=== PATIENT | male | born 1980 | race Two or more races ===

== ENCOUNTER 2019-03-10 16:49 | Observation (INO) | payer SELFPAY ==
--- NOTE | 2019-03-10 17:14 | ER Document Report ---
ED Medical Screen (RME) - General Chief Complaint: Chest Pain Stated Complaint: CHEST PAIN Time Seen by Provider: 03/10/19 17:12 TRAVEL OUTSIDE OF THE [place] IN LAST 30 DAYS: No - HPI Notes: 03/10/19 17:13 Patient is a 38-year-old male with no significant past medical history who presents complaining of intermittent chest pain for the past week and a half. Patient states that the pain is in his substernal area and is described as a sharp pain. The pain does not radiate. 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 Patient states that when the son came out today he started feeling dehydrated with muscle cramping and body aching. He did have one episode of vomiting. He is still urinating. Denies drug allergies. No recent illness. No history of DVT/PE. He had 1 beer today. Denies MAYO, fever, neck pain, URI, SOB, dysuria, or rash. I have treated and performed a rapid initial assessment of this patient. A comprehensive ED assessment and evaluation of the patient, analysis of test results and completion of medical decision making process will be conducted by additional ED providers. PHYSICAL EXAMINATION: GENERAL: Well-appearing, well-nourished and in no acute distress. A&Ox4. Answers questions appropriately. LUNGS: Breath sounds clear to auscultation bilaterally and equal. No wheezes rales or rhonchi. HEART: Regular rate and rhythm without murmurs, rubs, gallops. Extremities: No cyanosis, clubbing, or edema b/l. Danica negative bilaterally. No lower extremity asymmetry. NEUROLOGICAL: Normal speech, normal gait. PSYCH: Normal mood, normal affect. - Related Data Allergies/Adverse Reactions: No Known Allergies Allergy (Verified 03/10/19 16:56) Physical Exam - Vital signs Vitals: Temp Pulse Resp BP Pulse Ox 98.7 F 105 H 15 125/85 96 03/10/19 17:00 03/10/19 17:00 03/10/19 17:00 03/10/19 17:00 03/10/19 17:00 Course - Vital Signs Vital signs: Temp Pulse Resp BP Pulse Ox 98.7 F 105 H 15 125/85 96 03/10/19 17:00 03/10/19 17:00 03/10/19 17:00 03/10/19 17:00 03/10/19 17:00
[2019-03-10] MEDS ORDERED: METOCLOPRAMIDE HCL INJ/PF 10 MG/2 ML SDV IV ONE (17:15)
[2019-03-10] MEDS ORDERED: DIAZEPAM INJ 10 MG/2 ML DISP.SYRIN IV ONE (17:15)
[2019-03-10] MEDS: NORMAL SALINE 1000 ML 1,000 ML IV PRN ×2 (17:50→19:01)
[2019-03-10 17:52] LABS: ABSOLUTE BASOPHILS # (AUTO) 0.1 10^3/uL (0.0-0.2); ABSOLUTE LYMPHOCYTES (AUTO) 1.1 10^3/uL (0.5-4.7); ABSOLUTE MONOCYTES (AUTO) 0.8 10^3/uL (0.1-1.4); ABSOLUTE NEUT (AUTO) 8.3 10^3/uL (1.7-8.2); BASOPHILS % (AUTO) 0.5 % (0-2); HEMATOCRIT 45.4 % (37.9-51.0); HEMOGLOBIN 15.5 g/dL (13.5-17.0); LYMPHOCYTES % (AUTO) 10.9 % (13-45); MEAN CORPUSCULAR HEMOGLOBIN 32.1 pg (27.0-33.4); MEAN CORPUSCULAR HGB CONC 34.2 g/dL (32.0-36.0); MEAN CORPUSCULAR VOLUME 94 fl (80-97); MONOCYTES % (AUTO) 7.4 % (3-13); PLATELET COUNT 248 10^3/uL (150-450); RED BLOOD COUNT 4.84 10^6/uL (4.35-5.55); RED CELL DISTRIBUTION WIDTH 13.7 % (11.5-14.0); SEGMENTED NEUTROPHILS % (AUTO) 81.2 % (42-78); TOTAL CELLS COUNTED % (AUTO) 100 %; WHITE BLOOD COUNT 10.3 10^3/uL (4.0-10.5)
--- NOTE | 2019-03-10 18:09 | RADIOLOGY REPORT (SQ) ---
EXAM DESCRIPTION: CHEST 2 VIEWS COMPLETED DATE/TIME: 03/10/2019 6:01 pm REASON FOR STUDY: CP COMPARISON: None. EXAM PARAMETERS: NUMBER OF VIEWS: two views TECHNIQUE: Digital Frontal and Lateral radiographic views of the chest acquired. RADIATION DOSE: NA LIMITATIONS: none FINDINGS: LUNGS AND PLEURA: No opacities, masses or pneumothorax. No pleural effusion. MEDIASTINUM AND HILAR STRUCTURES: No masses or contour abnormalities. HEART AND VASCULAR STRUCTURES: Heart normal size. No evidence for failure. BONES: No acute findings. HARDWARE: None in the chest. OTHER: No other significant finding. IMPRESSION: NO ACUTE RADIOGRAPHIC FINDING IN THE CHEST. TECHNICAL DOCUMENTATION: JOB ID: [id number] [employer]- All Rights Reserved Reading location - IP/workstation name: [email or web address]
[2019-03-10 18:13] LABS: ALANINE AMINOTRANSFERASE 40 U/L (21-72); ALKALINE PHOSPHATASE 94 U/L (38-126); ASPARTATE AMINO TRANSFERASE 88 U/L (17-59); BILIRUBIN,DIRECT 0.5 mg/dL (0.0-0.4); BILIRUBIN,TOTAL 1.3 mg/dL (0.2-1.3); BLOOD UREA NITROGEN 23 mg/dL (7-20); CALCIUM 11.8 mg/dL (8.4-10.2); CREATINE KINASE 847 U/L (55-170); GLUCOSE 133 mg/dL (75-110); POTASSIUM 5.3 mmol/L (3.6-5.0)
--- NOTE | 2019-03-10 18:15 | EKG REPORT ---
SEVERITY:- NORMAL ECG - SINUS RHYTHM ST ELEV, PROBABLE NORMAL EARLY REPOL PATTERN : Confirmed by: Selma Piña MD 10-Mar-2019 18:14:28
[2019-03-10 18:19] LABS: ANION GAP 19 (5-19); CARBON DIOXIDE 29 mmol/L (22-30); CHLORIDE 91 mmol/L (98-107)
[2019-03-10 18:20] LABS: APPEARANCE,URINE TURBID; BILIRUBIN,URINE MODERATE (NEGATIVE); GLUCOSE, URINE NEGATIVE (NEGATIVE); KETONES,URINE TRACE mg/dL (NEGATIVE); LEUKOCYTE ESTERASE,URINE TRACE (NEGATIVE); NITRITE,URINE NEGATIVE (NEGATIVE); PROTEIN,URINE >=500 mg/dL (NEGATIVE); URINE SPECIFIC GRAVITY 1.027
[2019-03-10 18:21] LABS: ALBUMIN > 6.0 g/dL (3.5-5.0)
[2019-03-10 18:26] LABS: COLOR,URINE YELLOW
[2019-03-10] MEDS ORDERED: NORMAL SALINE 1000 ML 1,000 ML IV ONE (20:56)
--- NOTE | 2019-03-10 21:00 | ER Document Report ---
ED Cardiac - General Chief Complaint: Chest Pain Stated Complaint: CHEST PAIN Time Seen by Provider: 03/10/19 17:12 Notes: Patient is a 38-year-old male who presents emergency department with a chief complaint of chest pain and body cramping. She is primarily German-speaking and [employer] translation system was used with Krystal, aviation program manager #[id number]. 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 He states that he sometimes gets his chest pain and body cramping and has had it for a little while. He states that this time his cramping seemed more intense and that is why he came to the emergency department. He states that his chest pain has gone away. He admits to drinking 3-5 beers a day. He does not smoke. Patient states that he does drink some water, but not as much as he should. He received a liter of fluids and Valium in triage and states that he does feel better and the cramping has gone away. He denies any abdominal pain. TRAVEL OUTSIDE OF THE [place] IN LAST 30 DAYS: No - Related Data Allergies/Adverse Reactions: No Known Allergies Allergy (Verified 03/10/19 16:56) Past Medical History - General Information source: Patient, Relative - Social History Smoking Status: Never Smoker Chew tobacco use (# tins/day): No Frequency of alcohol use: Social Family History: Hyperlipidemia - Mother Patient has suicidal ideation: No Patient has homicidal ideation: No Renal/ Medical History: Denies: Hx Peritoneal Dialysis Review of Systems - Review of Systems Notes: REVIEW OF SYSTEMS: CONSTITUTIONAL : Denies recent illness. Denies recent unintentional weight loss. Denies fever, chills, or sweats. EENT: Denies eye, ear, throat, or mouth pain, discharge, or symptoms. Denies nasal or sinus congestion. CARDIOVASCULAR: See HPI RESPIRATORY: Denies shortness of breath, cough, congestion, difficulty breathing, or wheezing. GASTROINTESTINAL: Denies nausea, vomiting, and diarrhea. Denies abdominal pain. Denies constipation. GENITOURINARY: Denies difficulty urinating, burning, blood in urine, urgency or frequency. MUSCULOSKELETAL: Denies neck and back pain. Denies joint pain or swelling. SKIN: Denies rash, itchiness, or lesions HEMATOLOGIC : Denies easy bruising or bleeding. LYMPHATIC: Denies swollen, painful, enlarged glands. NEUROLOGICAL: Denies no numbness or tingling denies weakness. Denies headache. Denies altered mental status. Denies alteration in speech. PSYCHIATRIC: Denies stress, anxiety, alteration in sleep patterns, or depression. All other systems reviewed and negative. Physical Exam - Vital signs Vitals: Temp Pulse Resp BP Pulse Ox 98.7 F 105 H 15 125/85 96 03/10/19 17:00 03/10/19 17:00 03/10/19 17:00 03/10/19 17:00 03/10/19 17:00 - Notes Notes: PHYSICAL EXAMINATION: GENERAL: Appears well, healthy, well-nourished, no acute distress. HEAD: Normocephalic, atraumatic. EYES: PERRL, conjunctiva normal, all extraocular movements intact, sclera nonicteric ENT: Dry mucous membranes. NECK: Supple, no noticeable swelling, redness, rash. Normal range of motion. LUNGS: Equal breath sounds bilaterally and clear to auscultation. No wheezes rales or rhonchi. CARDIOVASCULAR: S1-S2, regular rate, regular rhythm. Radial pulses 2+, normal. ABDOMEN: Normoactive bowel sounds. Soft, nontender, no guarding, no rebound tenderness, and no masses palpated. EXTREMITIES: Normal strength and range of motion, no pitting or edema. No cyanosis. NEUROLOGICAL: Moves all extremities upon command. Strength 5/5 in all extremities. PSYCH: Normal mood, normal affect. SKIN: Warm, dry. No rash, lesions, ulcerations noted. Normal skin turgor. Course - Re-evaluation Re-evalutation: 03/10/19 21:00 Patient has a creatinine of 3.63 and a CK of 847. I use the [employer] aviation program manager to relate to the patient that he has an acute kidney injury and is also in rhabdomyolysis. His chest x-ray is negative for any acute findings. Troponin is negative. Hematology is unremarkable. Patient has greater than 500 protein in his urine with a small amount of blood, most likely due to his acute kidney injury. Patient denies any back pain. At this time I will call Dr. Noel, the hospitalist to have the patient admitted for rhabdomyolysis. Another liter of fluids will be ordered. The very low suspicion for acute myocardial infarction, pneumonia, or abdominal etiology. Lipase will be added to rule out pancreatitis, although patient will be hydrated regardless with the lipase is. Patient is also hyperkalemic, this will be treated with IV fluids. 03/10/19 21:[address] Noel and the patient will be admitted to the medical floor for acute renal failure and rhabdomyolysis. - Vital Signs Vital signs: Temp Pulse Resp BP Pulse Ox 98.7 F 72 15 120/71 99 03/10/19 17:00 03/10/19 19:04 03/10/19 20:01 03/10/19 20:00 03/10/19 20:01 - Laboratory Result Diagrams: 03/10/19 17:41 03/10/19 17:41 Laboratory results interpreted by me: 03/10/19 03/10/19 03/10/19 17:41 17:41 17:54 Seg Neutrophils % 81.2 H Lymphocytes % 10.9 L Absolute Neutrophils 8.3 H Potassium 5.3 H Chloride 91 L BUN 23 H Creatinine 3.63 H Est GFR ( Amer) 23 L Est GFR (Non-Af Amer) 19 L Glucose 133 H Calcium 11.8 H Direct Bilirubin 0.5 H AST 88 H Creatine Kinase 847 H Total Protein 11.0 H Albumin > 6.0 H Urine Protein >=500 H Urine Ketones TRACE H Urine Blood SMALL H Urine Bilirubin MODERATE H Urine Urobilinogen 4.0 H Ur Leukocyte Esterase TRACE H - EKG Interpretation by Me Additional EKG results interpreted by me: 03/10/19 21:06 Sinus rhythm. Rate 93. CT 164; QRS 84; QT 324; QTc 403. No ST elevations or depressions noted. Discharge - Discharge Clinical Impression: Dehydration, Hyperkalemia Rhabdomyolysis Qualifiers: Rhabdomyolysis type: non-traumatic Qualified Code(s): M62.82 - Rhabdomyolysis Acute renal failure Qualifiers: Acute renal failure type: unspecified Qualified Code(s): N17.9 - Acute kidney failure, unspecified Condition: Stable Disposition: ADMITTED INPATIENT Admitting Provider: Bert (Hospitalist) Unit Admitted: Medical Floor
[2019-03-10] MEDS ORDERED: MAG HYDROX/AL HYDROX/SIMETH SUSP 30 ML UDCUP PO PRN (21:23)
[2019-03-10] MEDS ORDERED: IPRATROPIUM/ALBUTEROL 0.5-2.5 MG/3 ML AMPUL NEB PRN (21:23)
[2019-03-10] MEDS ORDERED: MAGNESIUM HYDROXIDE SUSP 30 ML UDCUP PO PRN (21:23)
[2019-03-10] MEDS ORDERED: NORMAL SALINE 1000 ML 1,000 ML IV SCH (21:30)
[2019-03-10 21:40] LABS: URINE AMPHETAMINES SCREEN NEGATIVE; URINE BARBITURATES SCREEN NEGATIVE; URINE BENZODIAZEPINES SCREEN NEGATIVE; URINE COCAINE SCREEN NEGATIVE; URINE MARIJUANA (THC) SCREEN NEGATIVE; URINE METHADONE SCREEN NEGATIVE; URINE PHENCYCLIDINE SCREEN NEGATIVE
[2019-03-10] MEDS: HEPARIN SOD (PORCINE) 5,000 UNIT/ML 1 ML VIAL SUBCUT SCH (22:44)
--- NOTE | 2019-03-11 03:30 | PDOC H&P ---
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 Patient began noting cramping to the legs and abdomen with reduced diaphoresis and darkening of his urine he is prompted to seek evaluation in the emergency room was found to be in acute rhabdomyolysis with renal failure. He started on IV fluids and referred to the hospitalist for admission. Patient admits episod es of muscle cramping twice before while working in the summer but has not sought evaluation. He denies recent medications, energy drinks, caffeine, excessive alcohol or drugs. He otherwise feels well denying chest pain shortness of breath or headache. Past Medical History Medical History: None Psychiatric Medical History: Denies: Depression Past Surgical History Past Surgical History: Reports: None Social History Information Source: Patient Lives with: Family Smoking Status: Never Smoker Frequency of Alcohol Use: Heavy - 4-6 beers per night no history of withdrawal seizure or blackout Hx Recreational Drug Use: No Drugs: None Hx Prescription Drug Abuse: No Family History Family History: Hyperlipidemia - Mother Parental Family History Reviewed: Yes Children Family History Reviewed: Yes Sibling(s) Family History Reviewed.: Yes Medication/Allergy Home Medications: No Home Medications 03/10/19 Allergies/Adverse Reactions: No Known Allergies Allergy (Verified 03/10/19 16:56) Physical Exam Vital Signs: Temp Pulse Resp BP Pulse Ox 97.8 F 78 18 115/73 98 03/10/19 22:35 03/10/19 22:35 03/10/19 22:35 03/10/19 22:35 03/10/19 22:35 Intake & Output 03/09/19 03/10/19 03/11/19 11:59 11:59 11:59 Intake Total 1260 Balance 1260 Weight 63.2 kg Results Laboratory Results: 03/10/19 17:41 03/10/19 17:41 03/10/19 03/10/19 03/10/19 17:41 17:41 17:41 WBC 10.3 RBC 4.84 Hgb 15.5 Hct 45.4 MCV 94 MCH 32.1 MCHC 34.2 RDW 13.7 Plt Count 248 Seg Neutrophils % 81.2 H Lymphocytes % 10.9 L Monocytes % 7.4 Eosinophils % 0.0 Basophils % 0.5 Absolute Neutrophils 8.3 H Absolute Lymphocytes 1.1 Absolute Monocytes 0.8 Absolute Eosinophils 0.0 Absolute Basophils 0.1 Sodium 139.3 Potassium 5.3 H Chloride 91 L Carbon Dioxide 29 Anion Gap 19 BUN 23 H Creatinine 3.63 H Est GFR ( Amer) 23 L Est GFR (Non-Af Amer) 19 L Glucose 133 H Calcium 11.8 H Total Bilirubin 1.3 AST 88 H ALT 40 Alkaline Phosphatase 94 Total Protein 11.0 H Albumin > 6.0 H Lipase 178.0 Urine Color Urine Appearance Urine pH Ur Specific Apollo Urine Protein Urine Glucose (UA) Urine Ketones Urine Blood Urine Nitrite Ur Leukocyte Esterase Urine WBC (Auto) Urine RBC (Auto) 03/10/19 17:54 WBC RBC Hgb Hct MCV MCH MCHC RDW Plt Count Seg Neutrophils % Lymphocytes % Monocytes % Eosinophils % Basophils % Absolute Neutrophils Absolute Lymphocytes Absolute Monocytes Absolute Eosinophils Absolute Basophils Sodium Potassium Chloride Carbon Dioxide Anion Gap BUN Creatinine Est GFR ( Amer) Est GFR (Non-Af Amer) Glucose Calcium Total Bilirubin AST ALT Alkaline Phosphatase Total Protein Albumin Lipase Urine Color YELLOW Urine Appearance TURBID Urine pH 5.0 Ur Specific Apollo 1.027 Urine Protein >=500 H Urine Glucose (UA) NEGATIVE Urine Ketones TRACE H Urine Blood SMALL H Urine Nitrite NEGATIVE Ur Leukocyte Esterase TRACE H Urine WBC (Auto) 38 Urine RBC (Auto) 5 03/10/19 03/10/19 17:41 17:41 Creatine Kinase 847 H Troponin I < 0.012 Impressions: Chest X-Ray 03/10/19 17:14 IMPRESSION: NO ACUTE RADIOGRAPHIC FINDING IN THE CHEST. Assessment and Plan - Diagnosis (1) Alcohol dependence Is this a current diagnosis for this admission?: Yes Plan: No suggestion of malnutrition or withdrawal history. Patient is advised to limit intake by half (2) Acute renal failure Qualifiers: Acute renal failure type: unspecified Qualified Code(s): N17.9 - Acute kidney failure, unspecified Is this a current diagnosis for this admission?: Yes Plan: Secondary to dehydration with acute renal failure. IV fluid challenge, avoid nephrotoxic meds and doses, patient educated, follow-up chemistry and total CK (3) Dehydration Is this a current diagnosis for this admission?: Yes Plan: Secondary to prolonged and excessive heat exposure. Patient educated, IV fluid challenge initiated (4) Hyperkalemia Is this a current diagnosis for this admission?: Yes Plan: Likely secondary to rhabdomyolysis, follow-up total CK and chemistry (5) Rhabdomyolysis Qualifiers: Rhabdomyolysis type: non-traumatic Qualified Code(s): M62.82 - Rhabdomyolysis Is this a current diagnosis for this admission?: Yes Plan: Secondary to muscle cramping and heat exhaustion. IV fluid challenge initiated. Follow-up total CK and chemistry - Time Time Spent with patient: 25-34 minutes - Inpatient Certification Medical Necessity: Need Close Monitoring Due to Risk of Patient Decompensation
[2019-03-11] MEDS: HEPARIN SOD (PORCINE) 5,000 UNIT/ML 1 ML VIAL SUBCUT SCH ×3 (05:55→21:08)
[2019-03-11 06:41] LABS: ANION GAP 10 (5-19); BLOOD UREA NITROGEN 17 mg/dL (7-20); CARBON DIOXIDE 25 mmol/L (22-30); CHLORIDE 99 mmol/L (98-107); CREATINE KINASE 717 U/L (55-170); GLUCOSE 100 mg/dL (75-110)
[2019-03-11 06:49] LABS: POTASSIUM 3.9 mmol/L (3.6-5.0)
[2019-03-11] MEDS ORDERED: NORMAL SALINE 1000 ML 1,000 ML IV PRN (08:50)
[2019-03-11] MEDS: DOCUSATE SODIUM 100 MG CAPSULE PO SCH ×2 (09:51→17:03)
--- NOTE | 2019-03-11 10:42 | PDOC PROGRESS REPORT ---
Subjective Progress Note for:: 03/11/19 Subjective:: This is 38 years old male patient with no significant medical history presented with chief complaint of muscle cramping involving his abdomen and his extremities. 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 He reports this excessive and prominent good exposure to direct 7 8 while his [place]pen. His blood work shows acute kidney injury with creatinine of 3.63 and today after aggressive hydration his creatinine is trended down to 1.05. His CK is also trending down from [id number]. His hyperkalemia with potassium of 5.3 has resolved. He has also hypercalcemia with calcium level of 11.8 and now normalized to 9. Patient reports that the cramping is improving. Reason For Visit: ARF RHABDOMYOLYSIS Physical Exam Vital Signs: Temp Pulse Resp BP Pulse Ox 98.6 F 67 14 114/67 99 03/11/19 07:37 03/11/19 09:08 03/11/19 09:08 03/11/19 07:37 03/11/19 09:08 Intake & Output 03/10/19 03/11/19 03/12/19 06:59 06:59 06:59 Intake Total 1260 1999 Balance 1260 1999 Weight 63.2 kg Results Laboratory Results: 03/10/19 17:41 03/11/19 05:09 03/10/19 03/10/19 03/10/19 17:41 17:41 17:41 WBC 10.3 RBC 4.84 Hgb 15.5 Hct 45.4 MCV 94 MCH 32.1 MCHC 34.2 RDW 13.7 Plt Count 248 Seg Neutrophils % 81.2 H Lymphocytes % 10.9 L Monocytes % 7.4 Eosinophils % 0.0 Basophils % 0.5 Absolute Neutrophils 8.3 H Absolute Lymphocytes 1.1 Absolute Monocytes 0.8 Absolute Eosinophils 0.0 Absolute Basophils 0.1 Sodium 139.3 Potassium 5.3 H Chloride 91 L Carbon Dioxide 29 Anion Gap 19 BUN 23 H Creatinine 3.63 H Est GFR ( Amer) 23 L Est GFR (Non-Af Amer) 19 L Glucose 133 H Calcium 11.8 H Total Bilirubin 1.3 AST 88 H ALT 40 Alkaline Phosphatase 94 Total Protein 11.0 H Albumin > 6.0 H Lipase 178.0 Urine Color Urine Appearance Urine pH Ur Specific Himrod Urine Protein Urine Glucose (UA) Urine Ketones Urine Blood Urine Nitrite Ur Leukocyte Esterase Urine WBC (Auto) Urine RBC (Auto) 03/10/19 03/11/19 17:54 05:09 WBC RBC Hgb Hct MCV MCH MCHC RDW Plt Count Seg Neutrophils % Lymphocytes % Monocytes % Eosinophils % Basophils % Absolute Neutrophils Absolute Lymphocytes Absolute Monocytes Absolute Eosinophils Absolute Basophils Sodium 134.3 L Potassium 3.9 D Chloride 99 Carbon Dioxide 25 Anion Gap 10 BUN 17 Creatinine 1.05 Est GFR ( Amer) > 60 Est GFR (Non-Af Amer) > 60 Glucose 100 Calcium 9.0 Total Bilirubin AST ALT Alkaline Phosphatase Total Protein Albumin Lipase Urine Color YELLOW Urine Appearance TURBID Urine pH 5.0 Ur Specific [place] 1.027 Urine Protein >=500 H Urine Glucose (UA) NEGATIVE Urine Ketones TRACE H Urine Blood SMALL H Urine Nitrite NEGATIVE Ur Leukocyte Esterase TRACE H Urine WBC (Auto) 38 Urine RBC (Auto) 5 03/10/19 03/10/19 03/11/19 17:41 17:41 05:09 Creatine Kinase 847 H 717 H Troponin I < 0.012 Impressions: Chest X-Ray 03/10/19 17:14 IMPRESSION: NO ACUTE RADIOGRAPHIC FINDING IN THE CHEST. Assessment and Plan - Diagnosis (1) Acute kidney injury Is this a current diagnosis for this admission?: Yes Plan: Has beeen resolving. We will continue the hydration. (2) Rhabdomyolysis Qualifiers: Rhabdomyolysis type: non-traumatic Qualified Code(s): M62.82 - Rhabdo myolysis Is this a current diagnosis for this admission?: Yes Plan: Resolving (3) Hyperkalemia Is this a current diagnosis for this admission?: Yes Plan: Resolved (4) Hypercalcemia Is this a current diagnosis for this admission?: Yes Plan: Resolved
[2019-03-11] MEDS: NORMAL SALINE 1000 ML 1,000 ML IV PRN ×2 (16:09→21:55)
[2019-03-12] MEDS: NORMAL SALINE 1000 ML 1,000 ML IV PRN (04:24)
[2019-03-12] MEDS: HEPARIN SOD (PORCINE) 5,000 UNIT/ML 1 ML VIAL SUBCUT SCH (05:17)
--- NOTE | 2019-03-12 08:42 | PDOC DISCHARGE SUMMARY ---
General - Admit/Disc Date/PCP Admission Date/Primary Care Provider: 03/10/19 21:17 Discharge Date: 03/12/19 - Discharge Diagnosis (1) Acute kidney injury Is this a current diagnosis for this admission?: Yes (2) Rhabdomyolysis Is this a current diagnosis for this admission?: Yes (3) Hyperkalemia Is this a current diagnosis for this admission?: Yes (4) Hypercalcemia Is this a current diagnosis for this admission?: Yes - Additional Information Home Medications: No Home Medications 03/10/19 History of Present Illness History of Present Illness: TOMMY WATSON is a 38 year old Serbian-speaking male without significant past medical history who presents with muscle cramping after 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 Patient began noting cramping to the legs and abdomen with reduced diaphoresis and darkening of his urine he is prompted to seek evaluation in the emergency room was found to be in acute rhabdomyolysis with renal failure. He started on IV fluids and referred to the hospitalist for admission. Patient admits episodes of muscle cramping twice before while working in the summer but has not sought evaluation. He denies recent medications, energy drinks, caffeine, excessive alcohol or drugs. He otherwise feels well denying chest pain shortness of breath or headache. Hospital Course Hospital Course: This is 38 years old male patient with no significant medical history presented with chief complaint of muscle cramping involving his abdomen and his extremities. 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 He reports this excessive and prominent good exposure to direct 7 8 while his [place]pen. His blood work shows acute kidney injury with creatinine of 3.63 and today after aggressive hydration his creatinine is trended down to 1.05. His CK is also trending down from [id number]. His hyperkalemia with potassium of 5.3 has resolved. He has also hypercalcemia with calcium level of 11.8 and now normalized to 9. Patient reports that the cramping is improving. 03/16/2019: Patient seen and examined while he is resting in bed comfortably. He is awake alert oriented. He reports this all his symptoms has subsided. Advised to hydrate as much as he can when he AND also advised to avoid excessive exposure to hot weather. He advised also to follow-up with his primary care physician. Physical Exam Vital Signs: Temp Pulse Resp BP Pulse Ox 98.6 F 57 L 16 126/77 H 99 03/11/19 23:41 03/11/19 23:41 03/11/19 23:41 03/11/19 23:41 03/11/19 23:41 Intake & Output 03/11/19 03/12/19 03/13/19 06:59 06:59 06:59 Intake Total 1260 6620 Balance 1260 6620 Weight 63.2 kg 63.4 kg General appearance: PRESENT: no acute distress Head exam: PRESENT: atraumatic Eye exam: PRESENT: conjunctiva pink Neck exam: ABSENT: carotid bruit, JVD, lymphadenopathy, thyromegaly Respiratory exam: PRESENT: clear to auscultation amadou. ABSENT: rales, rhonchi, wheezes Cardiovascular exam: PRESENT: RRR. ABSENT: diastolic murmur, rubs, systolic murmur Neurological exam: PRESENT: alert, awake, oriented to person, oriented to place, oriented to time, oriented to situation Results Laboratory Results: 03/10/19 17:41 03/11/19 05:09 03/10/19 03/10/19 03/11/19 17:41 17:41 05:09 Creatine Kinase 847 H 717 H Troponin I < 0.012 Impressions: Chest X-Ray 03/10/19 17:14 IMPRESSION: NO ACUTE RADIOGRAPHIC FINDING IN THE CHEST. Qualifiers - * PATIENT BEING DISCHARGED WITH ANY OF THE FOLLOWING DIAGNOSIS: No Acute Heart Failure - Is this a Heart Failure Patient?: No LVEF < 40%?: No- if no continue to question #3 3. Anticoagulant therapy for permanect/persistent/paraoxysmal Afib or Aflutter: N/A Follow-up Appointment scheduled within 7 days?: Yes
[2019-03-12 09:53] VITALS: BP 115/73
== END 2019-03-12 10:20 | disposition home or self-care (01) ==
LOC: ER 16:49 → EH 21:17 → INTOOBSV 21:17 → 4S 22:33
PROVIDERS: ADMIT Internal Medicine; ATTEND Internal Medicine
DX: N17.9 Acute kidney failure, unspecified (principal); M62.82 Rhabdomyolysis; E87.5 Hyperkalemia; E83.52 Hypercalcemia; T67.5XXA Heat exhaustion, unspecified, initial encounter; X30.XXXA Exposure to excessive natural heat, initial encounter; Y93.H3 Activity, building and construction; Y99.0 Civilian activity done for income or pay; F10.20 Alcohol dependence, uncomplicated; E86.0 Dehydration; R31.9 Hematuria, unspecified; R80.9 Proteinuria, unspecified
CPT/HCPCS: 93005; 99285; 96374; 96375; 36415 ×2; 82550 ×2; 83690; 85025; 80048; 80053; 81001; 84484; 80307; 83036; 71046; 93010; G0378 ×4; J3360; J2765; J7030 ×3

== ENCOUNTER → 2019-03-19 | Outpatient (CLI) | payer OTHER ==
[2019-03-19 10:58] LABS: ALBUMIN 4.5 g/dL (3.5-5.0); ALKALINE PHOSPHATASE 54 U/L (38-126); ANION GAP 7 (5-19); ASPARTATE AMINO TRANSFERASE 38 U/L (17-59); BILIRUBIN,DIRECT 0.3 mg/dL (0.0-0.4); BILIRUBIN,TOTAL 0.4 mg/dL (0.2-1.3); BLOOD UREA NITROGEN 14 mg/dL (7-20); CALCIUM 9.7 mg/dL (8.4-10.2); CARBON DIOXIDE 29 mmol/L (22-30); CHLORIDE 102 mmol/L (98-107); CHOLESTEROL 160.71 mg/dL (0-200); CREATINE KINASE 192 U/L (55-170); GLUCOSE 97 mg/dL (75-110); TOTAL PROTEIN 7.4 g/dL (6.3-8.2); TRIGLYCERIDES 91 mg/dL (<150)
[2019-03-19 11:09] LABS: DIRECT LDL 93 mg/dL (<100)
[2019-03-21 11:00] LABS: APPEARANCE,URINE CLEAR; BILIRUBIN,URINE NEGATIVE (NEGATIVE); COLOR,URINE YELLOW; GLUCOSE, URINE NEGATIVE (NEGATIVE); KETONES,URINE NEGATIVE (NEGATIVE); LEUKOCYTE ESTERASE,URINE NEGATIVE (NEGATIVE); NITRITE,URINE NEGATIVE (NEGATIVE); PROTEIN,URINE NEGATIVE (NEGATIVE); URINE SPECIFIC GRAVITY 1.013; UROBILINOGEN,URINE NEGATIVE mg/dL (<2.0)
== END ==
LOC: CCC 09:24
DX: M62.82 Rhabdomyolysis (principal); E86.0 Dehydration
CPT/HCPCS: 36415; 80053; 80061; 81001; 82550; 83036; 84443